=== PATIENT | female | born 1950 | race Caucasian/White ===

== ENCOUNTER 2016-07-15 09:15 | Day surgery (SDC) | payer MEDICARE, OTHER ==
--- NOTE | ~2016-07-15 | EGD ---
EGD REPORT [facility] [address] [address] NAME: CLARENCE LADD : [birth year] STATUS : REG [facility]#: [id number] AGE: 66 ADM/REG DATE : 07/15/16 MR#: [id number] REPORT SERV DATE: 07/15/16 DICTATED BY: KAIT ARGUETA DATE: 07/15/16 REPORT STATUS : Draft TRANSCRIBED BY: [facility] DATE: 07/15/16 [facility] Patient Name: Clarence Ladd Date of : 1950 Attending MD: KAIT ARGUETA MD Procedure Date No Time: 07/15/2016 Procedure: Colonoscopy Indications: High risk colon cancer surveillance: Personal history of colonic polyps Referring MD: MISA MASTERSON Medicines: Monitored Anesthesia Care Complications: No immediate complications. Procedure: Pre-Anesthesia Assessment: - ASA Grade Assessment: II - A patient with mild systemic disease. After I obtained informed consent, the scope was passed under direct vision. Throughout the procedure, the patient's blood pressure, pulse, and oxygen saturations were monitored continuously. The CF [id number] was introduced through the anus and advanced to the cecum, identified by appendiceal orifice and ileocecal valve. The colonoscopy was performed without difficulty. The patient tolerated the procedure well. The quality of the bowel preparation was good. Findings: The digital rectal exam was normal. Pertinent negatives include no palpable rectal lesions. Multiple diverticula were found in the sigmoid colon. Two sessile polyps were found in the rectum. The polyps were 2 to 3 mm in size. These polyps were removed with a cold biopsy forceps. Resection and retrieval were complete. A sessile polyp was found in the transverse colon. The polyp was 5 mm in size. The polyp was removed with a cold biopsy forceps. Resection and retrieval were complete. Hemorrhoids were found during retroflexion and were mild. Impression: - Diverticulosis in the sigmoid colon. - Two 2 to 3 mm polyps in the rectum. Resected and retrieved. - One 5 mm polyp in the transverse colon. Resected and retrieved. - Hemorrhoids. Recommendation: - Patient has a contact number available for EGD REPORT [address] [address] NAME: CLARENCE LADD : [birth year] STATUS : REG [facility] [place] PAT#: [id number] AGE: 66 ADM/REG DATE : 07/15/16 MR#: [id number] REPORT SERV DATE: 07/15/16 DICTATED BY: KAIT ARGUETA DATE: 07/15/16 REPORT STATUS : Draft TRANSCRIBED BY: [employer] DATE: 07/15/16 emergencies. The signs and symptoms of potential delayed complications were discussed with the patient. Return to normal activities tomorrow. Written discharge instructions were provided to the patient. - Regular diet. - Continue present medications. - Repeat colonoscopy in 5 years for surveillance. - Return to GI clinic PRN. Procedure Code(s): --- Professional --- 19150, Colonoscopy, flexible, proximal to splenic flexure; with biopsy, single or multiple Diagnosis Code(s): --- Professional --- K64.9, Unspecified hemorrhoids K57.30, Diverticulosis of large intestine without perforation or abscess without bleeding D12.3, Benign neoplasm of transverse colon K62.1, Rectal polyp Z86.010, Personal history of colonic polyps CPT copyright 2013 [employer]. All rights reserved. The codes documented in this report are preliminary and upon label coder review may be revised to meet current compliance requirements. KAIT ARGUETA MD 07/15/2016 1:30 PM This report has been signed electronically. Number of Addenda: 0 Note Initiated On: 07/15/2016 12:19 PM Scope Withdrawal Time 0 hours 8 minutes 3 seconds [id number] [place] [id number]
[~2016-07-15 09:15] MED LIST: B12250T PO; MAGOX4 PO; PRILO PO; VITAMIN D31000 UNIT PO; ZOCOR40 PO
== END 2016-07-15 23:59 | disposition home health service (06) ==
LOC: DMU 09:15
PROVIDERS: Internal Medicine Gastroenterology
PROC: 0DBL8ZX Excision of Transverse Colon, Via Natural or Artificial Opening Endoscopic, Diagnostic (ICD-10-PCS; 2016-07-15)
PROC: 0DBP8ZX Excision of Rectum, Via Natural or Artificial Opening Endoscopic, Diagnostic (ICD-10-PCS; principal; 2016-07-15 11:00)
DX: Z12.11 Encounter for screening for malignant neoplasm of colon (principal); D12.3 Benign neoplasm of transverse colon; K57.30 Diverticulosis of large intestine without perforation or abscess without bleeding; K62.1 Rectal polyp; K64.9 Unspecified hemorrhoids; K21.9 Gastro-esophageal reflux disease without esophagitis; E78.00 Pure hypercholesterolemia, unspecified; E66.01 Morbid (severe) obesity due to excess calories; Z86.010 Personal history of colon polyps; Z90.710 Acquired absence of both cervix and uterus; Z98.890 Other specified postprocedural states
CPT/HCPCS: 88305